=== PATIENT | female | born 1980 | race Caucasian/White ===

== ENCOUNTER 2018-08-04 06:24 | Emergency (ER) | payer SELFPAY ==
[2018-08-04 07:13] LABS: HEMATOCRIT 40 % (35-47); HEMOGLOBIN 13.1 gm/dl (12.0-15.5); MEAN CORPUSCULAR HEMOGLOBIN 27.8 pg (27.0-32.0); MEAN CORPUSCULAR HGB CONC 32.6 gm/dl (32.0-36.0); MEAN CORPUSCULAR VOLUME 85 fL (81-99)
[2018-08-04 07:18] LABS: APPEARANCE,URINE Slightly Cloudy; BILIRUBIN,URINE 1+ (NEGATIVE); COLOR,URINE Yellow; GLUCOSE, URINE (UA) NEGATIVE (NEGATIVE); KETONES,URINE 1+ (NEGATIVE); LEUKOCYTE ESTERASE ,URINE NEGATIVE (NEGATIVE); NITRATE,URINE NEGATIVE (NEGATIVE); OCCULT BLOOD,URINE 1+ (NEG-TRACE); PH,URINE 5.5; UROBILINOGEN,URINE 0.2 (0.2-1.0 EU)
[2018-08-04 07:29] LABS: ICTOTEST,URINE NEGATIVE (NEGATIVE)
[2018-08-04 07:30] LABS: ALBUMIN 3.5 gm/dl (3.4-5.0); BILIRUBIN,TOTAL 0.3 mg/dl (0.2-1.0); CALCIUM 8.2 mg/dl (8.5-10.1); CARBON DIOXIDE 24.9 mEq/L (21-32); CREATININE 0.81 mg/dl (0.60-1.00); POTASSIUM 4.2 mMol/L (3.5-5.1); TOTAL PROTEIN 7.6 gm/dl (6.4-8.2)
[2018-08-04 07:34] LABS: BACTERIA NEGATIVE (< 1+); CRYSTALS !+ AMORPH PHOS (0-3 AVE/HPF); WBC,URINE 0-3 (0-5AV/HPF)
[2018-08-04 07:42] LABS: BAND NEUTROPHILS % (MANUAL) 2 %; BASOPHILS % (MANUAL) 0 % (0-3); EOSINOPHILS % (MANUAL) 0 % (0-9); LYMPHOCYTES % (MANUAL) 6 % (10-50); MONOCYTES % (MANUAL) 3 % (0-12); NEUTROPHILS % (MANUAL) 89 % (37-80); NORMAL RBCS PRESENT
[2018-08-04 07:53] LABS: CRP INFLAMMATORY 0.52 mg/dl (0.00-0.33)
[2018-08-04 08:59] VITALS: RESP 16
[2018-08-04 09:50] VITALS: BP 131/81; PULSE 90; TEMP 97.6; O2SAT 99
== END 2018-08-04 10:08 | disposition short-term general hospital (02) | DRG 395 ==
LOC: ED 06:24
DX: K35.80 Unspecified acute appendicitis (principal)
CPT/HCPCS: 36415; 74176; 80053; 81001; 82150; 84703; 85007; 85027; 85651; 99283